=== PATIENT | male | born 1985 | race Caucasian/White ===

== ENCOUNTER 2016-08-26 10:19 | Emergency (ER) | payer MEDICARE, OTHER ==
[2016-08-26 10:38] VITALS: TEMP 97.9
[2016-08-26] MEDS ORDERED: ALPRAZolam 0.25 MG TAB PO ONE (10:38)
[2016-08-26] MEDS ORDERED: HYDROcodone 7.5MG/APAP 325MG 1 EA TAB PO ONE (10:38)
[2016-08-26] MEDS ORDERED: cloNIDine HCL 0.1 MG TAB PO ONE (10:38)
[2016-08-26] MEDS ORDERED: IPRATROPIUM/ALBUTEROL 3 ML VIAL NEB ONE (10:38)
--- NOTE | 2016-08-26 11:18 | RAD ---
EXAM DESCRIPTION: Chest,2 Views CLINICAL HISTORY: cough, sob uncontrolled htn COMPARISON: May 11, 2016 FINDINGS: Two-view chest x-ray shows mild enlargement of the cardiac silhouette without pulmonary vascular congestion. There are interval increased interstitial and alveolar infiltrates throughout the right lower lobe and to a lesser degree left lower lobe with perihilar increased interstitial markings right greater than left. No obvious pleural effusion seen. Osseous structures are unremarkable IMPRESSION: Interval worsening of moderate right and mild left pneumonia versus aspiration in the bilateral lower lobes and perihilar regions. Recommend continued follow-up until resolution to exclude neoplastic process. Electronically signed by: Lionel Rock MD 08/26/2016 11:18 AM CDT
[2016-08-26] MEDS ORDERED: cefTRIAXone SODIUM 1 GM in SODIUM CHL 0.9% 50ML MIN-BAG+ 50 ML IVPB ONE (12:02)
[2016-08-26] MEDS ORDERED: AZITHROMYCIN IV 500 MG in SODIUM CHLORIDE 0.9% 250ML 250 ML IVPB ONE (12:03)
[2016-08-26] MEDS ORDERED: SODIUM CHL 0.9% 50ML MIN-BAG+ 50 ML IVPB ONE (12:21)
[2016-08-26] MEDS ORDERED: cefTRIAXone SODIUM 1 GM VIAL ONE (12:21)
--- NOTE | 2016-08-26 12:23 | ED.PDOC ---
History of Present Illness - General Chief Complaint: General Stated Complaint: NAUSEA, VOMITING, CHEST PAIN, HEADACHE Time Seen by Provider: 08/26/16 10:27 Source: patient Exam Limitations: no limitations - History of Present Illness Initial Comments: The patient is a 30-year-old male presenting to the emergency room secondary to headache starting approximately 24 hours ago with associated increasing shortness of breath and a productive sputum. The patient was found to have a significantly elevated blood pressure at home this morning and was told to come to the emergency room for these complaints. He does have end- stage renal disease from IgA nephropathy according to the patient. He does normally get dialysis on Mondays, Wednesdays and Fridays. He has missed his dialysis appointment today. Blood pressures upon arrival here were in the 190s over 120s. The patient does have mild to moderate increased work of breathing upon arrival with diffuse wheezes and fine rales at least in the right middle lobe. The patient reports that he has taken his blood pressure medications this morning and did go to all of his dialysis appointments last week. No overt evidence of fluid retention on this patient at this time. He does report a diffuse headache. No nuchal rigidity or meningeal signs. He does report that he has had a fever over the last 24-36 hours. The patient has had several episodes of flash pulmonary edema over the last year or 2 particularly when he has had medication noncompliance or noncompliance with his dialysis. Timing/Duration: 24 hours Severity: moderate Improving Factors: nothing Worsening Factors: nothing Associated Symptoms: cough, fever/chills, headaches, malaise, shortness of breath Allergies/Adverse Reactions: Allergies NO KNOWN ALLERGY Allergy (Verified 08/26/16 10:30) Home Medications: Ambulatory Orders Atorvastatin Calcium [Lipitor] 20 mg PO DAILY 05/11/16 Calcitriol 0.25 mcg PO DAILY 05/11/16 Carvedilol 3.125 mg PO BID 05/11/16 Clonidine HCl 0.1 mg PO BID 05/11/16 Hydralazine HCl 50 mg PO BID 05/11/16 Potassium Chloride [K-Tab] 1 - 1.5 meq PO DAILY 05/11/16 Prazosin HCl 2 mg PO DAILY 05/11/16 Sertraline HCl [Zoloft] 100 mg PO DAILY 05/11/16 Torsemide 100 mg PO DAILY 05/11/16 Trazodone HCl 100 mg PO DAILY 05/11/16 amLODIPine BESYLATE [Norvasc] 10 mg PO DAILY 05/11/16 Review of Systems - Review of Systems Constitutional: States: fever, malaise EENTM: States: no symptoms reported Respiratory: States: cough, short of breath, wheezing Cardiology: States: no symptoms reported Gastrointestinal/Abdominal: States: no symptoms reported Genitourinary: States: no symptoms reported Musculoskeletal: States: no symptoms reported Skin: States: no symptoms reported Neurological: States: anxiety, headache Endocrine: States: no symptoms reported All other Systems: No Change from Baseline Past Medical History (General) - Patient Medical History Hx Seizures: No Hx Stroke: Yes Hx Dementia: No Hx Asthma: No Hx of COPD: No Hx Cardiac Disorders: Yes Hx Congestive Heart Failure: No Hx Pacemaker: No Hx Hypertension: Yes Hx Thyroid Disease: No Hx Diabetes: No Hx Gastroesophageal Reflux: No Hx Renal Disease: Yes - DIALYSIS PATIENT Hx Cancer: No Hx of HIV: No Hx Hepatitis C: No Hx MRSA: No - Vaccination History Hx Tetanus, Diphtheria Vaccination: Yes Hx Influenza Vaccination: Yes Hx Pneumococcal Vaccination: Yes Immunizations Up to Date: Yes - Social History Hx Tobacco Use: No Hx Chewing Tobacco Use: Yes - CAN A DAY Hx Alcohol Use: No Hx Substance Use: No Hx Substance Use Treatment: No Hx Depression: No Feels Threatened In Home Enviroment: No Feels Threatened In a Relationship: No Hx Physical Abuse: No Hx Emotional Abuse: No Hx Suspected Abuse: No - Female History Patient is a Female of Child Bearing Age (10 -59 yrs old): No Patient : No Family Medical History - Family History Father Family History: Unknown Living Status: Still Living Physical Exam - Physical Exam General Appearance: Alert, Anxious Eye Exam: bilateral normal Ears, Nose, Throat: hearing grossly normal, normal ENT inspection, normal pharynx Neck: non-tender, full range of motion, supple Respiratory: chest non-tender, other - mild increased work of breathing and there is some accessory muscle use. Pulmonary exam is otherwise as described in the history of present illness. 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 Shunt is in place. Neurologic: alert, normal mood/affect - mildly anxious, oriented x 3 Skin Exam: normal color Comments: Vital Signs - 24 hr 08/26/16 08/26/16 08/26/16 10:32 10:56 11:10 Temperature 97.9 F Pulse Rate 88 Pulse Rate [ 89 Left Radial] Respiratory 20 18 20 Rate Blood Pressure 192/129 [Left Arm] O2 Sat by Pulse 95 97 Oximetry 08/26/16 08/26/16 11:21 11:43 Temperature Pulse Rate Pulse Rate [ 89 92 H Left Radial] Respiratory 18 20 Rate Blood Pressure 192/129 161/92 [Left Arm] O2 Sat by Pulse 99 99 Oximetry Progress - Progress Progress: 08/26/16 12:26 the patient is a 30-year-old male with end-stage renal disease presenting with uncontrolled symptomatic hypertension, mild respiratory distress from a right middle lobe pneumonia. He did respond favorably clinically to a DuoNeb treatment. Wheezing has improved significantly. Respiratory discomfort has improved significantly. The patient has received 1 dose of Rocephin and azithromycin. The patient has also responded well to clonidine for the hypertension and blood pressures are now more controlled. He is receiving directed pain medications for the headache. The patient is being transferred for dialysis and further monitoring and treatment as deemed necessary by his clinical progression. He is not requiring supplemental oxygen at this time. Blood culture has been performed here. - Results/Orders Results/Orders: 08/26/16 10:39 Telemetry .CONTINUOUS UA [URINALYSIS] Stat 08/26/16 10:45 EKG STAT EKG shows severe LVH with mild T-wave inversions in V5 and V6. Right axis deviation. Normal sinus rhythm. 08/26/16 12:02 cefTRIAXone SODIUM [Rocephin] 1 gm Sodium Chl 0.9% 50Ml Min-Bag+ [NS 50ml MINI -BAG+] 50 ml IVPB ONCE 08/26/16 12:03 Azithromycin IV [Zithromax IV] 500 mg Sodium Chloride 0.9% 250Ml [NS 250ml] 250 ml IVPB ONCE 08/26/16 12:05 BLOOD CULTURE Stat chest x-ray is consistent with developing right middle lobe pneumonia. Laboratory Results - last 24 hr 08/26/16 11:20 WBC 12.2 H RBC 4.07 L Hgb 12.6 L Hct 36.9 L MCV 90.9 MCH 30.9 MCHC 34.2 RDW 13.6 Plt Count 137 MPV 8.9 Absolute Neuts (auto) 10.50 H Absolute Lymphs (auto) 0.80 L Absolute Monos (auto) 0.70 Absolute Eos (auto) 0.20 Absolute Basos (auto) 0.10 Neutrophils % 85.9 H Lymphocytes % 6.6 L Monocytes % 5.5 Eosinophils % 1.5 Basophils % 0.5 PT 12.2 INR 1.080 PTT (SP) 29.8 Sodium 133 L Potassium 3.3 L Chloride 95 L Carbon Dioxide 25 Anion Gap 16.3 BUN 42 H Creatinine 9.63 H* BUN/Creatinine Ratio 4.4 L Random Glucose 109 H Serum Osmolality 277.4 Calcium 8.7 Total Bilirubin 1.7 H AST 21 ALT 13 Alkaline Phosphatase 61 Creatine Kinase 99 CK-MB (CK-2) 1.8 CK-MB (CK-2) % Not Reportable Troponin I 0.06 H B-Natriuretic Peptide 3800.0 H* Serum Total Protein 7.0 Albumin 3.8 Globulin 3.2 Albumin/Globulin Ratio 1.2 Departure - Departure Clinical Impression: Pneumonia, ESRD (end stage renal disease) on dialysis, Hypertensive emergency Disposition: Transfer to Hospital Home Medications: Ambulatory Orders Atorvastatin Calcium [Lipitor] 20 mg PO DAILY 05/11/16 Calcitriol 0.25 mcg PO DAILY 05/11/16 Carvedilol 3.125 mg PO BID 05/11/16 Clonidine HCl 0.1 mg PO BID 05/11/16 Hydralazine HCl 50 mg PO BID 05/11/16 Potassium Chloride [K-Tab] 1 - 1.5 meq PO DAILY 05/11/16 Prazosin HCl 2 mg PO DAILY 05/11/16 Sertraline HCl [Zoloft] 100 mg PO DAILY 05/11/16 Torsemide 100 mg PO DAILY 05/11/16 Trazodone HCl 100 mg PO DAILY 05/11/16 amLODIPine BESYLATE [Norvasc] 10 mg PO DAILY 05/11/16 Transfer to Outside Facility - Transfer Information Accepting Provider:: dr harkins Accepting Facility: [facility] Reason for Transfer: specialized care not available
[2016-08-26 12:48] VITALS: BP 192/104; O2SAT 88
[2016-08-26] MEDS ORDERED: AZITHROMYCIN IV 500 MG VIAL IVPB ONE (12:54)
[2016-08-26] MEDS ORDERED: SODIUM CHLORIDE 0.9% 250ML 250 ML ONE (12:54)
[2016-08-26] MEDS ORDERED: METOPROLOL TARTRATE INJ 5 MG/5 ML VIAL IV ONE ×2 (13:18→13:19)
[2016-08-26] MEDS ORDERED: HYDROmorphone HCL INJ 2 MG/ML VIAL ONE (13:19)
[2016-08-26] MEDS: HYDROmorphone HCL INJ 2 MG/ML VIAL IV ONE (13:21)
== END 2016-08-26 13:28 | disposition short-term general hospital (02) ==
LOC: ER 10:19
DX: J18.9 Pneumonia, unspecified organism (principal); I16.0 Hypertensive urgency; I12.0 Hypertensive chronic kidney disease with stage 5 chronic kidney disease or end stage renal disease; N18.6 End stage renal disease; F17.220 Nicotine dependence, chewing tobacco, uncomplicated; Z99.2 Dependence on renal dialysis; Z86.73 Personal history of transient ischemic attack (TIA), and cerebral infarction without residual deficits; Z79.899 Other long term (current) drug therapy
CPT/HCPCS: 71020; 80053; 82550; 82553; 83880; 84484; 85025; 85610; 85730; 87040; 93005; 94640; J0456; J0696; J7050; J7620